=== PATIENT | female | born 1950 | race Caucasian/White ===

== ENCOUNTER → 2017-01-18 | Outpatient (CLI) | payer BC ==
[~2017-01-18] MED LIST: ANTIVERT PO; CALCIUM; CELEXA PO; CLARITIN10 MG PO; FLONASE16 GM; LEVSIN; LISINOPRIL; LISINOPRIL PO; LORTAB 7.5-5001 TAB; METHSCOPOLAMINE; MULTI-VITAMIN1 TAB; PREVACID; PREVACID PO; REGLAN; REGLAN PO
--- NOTE | ~2017-01-18 | MY29 ---
[facility] A Service of [facility] & [facility] RADIOLOGY TEXT RESULTS PATIENT: MIRA BLACK LOCATION: [facility] : 54 UNIT #: [id number] AGE: [address]: Sammy Key MD SEX: F ORDER DR: [id number] [facility]. [place], [place] [address] [id number] O MR#: [id number] Acc #: [id number] NAME: MIRA BLACK : 1950 SEX: F STUDY DATE/TIME: 01/18/2017 16:08 UNIT: [facility] ROOM: STUDY DESCRIPTION: MY ABDULAZIZ SCREENING W/ CAD BILAT Attending Physician: Sammy Key M.D. Referring Physician: Sammy Key M.D. Ordering Physician: Sammy Key M.D. Primary Care Physician: Sammy Key M.D. MEDICAL IMAGING REPORT This report is preliminary unless electronic signature is present EXAM Bilateral digital screening mammogram with CAD. COMPARISON January 09, 2016, December 31, 2014, October 17, 2013, July 02, 2012, July 10, 2011, May 06, 2010, April 11, 2010. April 10, 2009, March 21, 2008, April 18, 2007. March 24, 2007, and March 15, 2006. INDICATION Breast cancer screening. 66-year-old asymptomatic female. No personal or family history of breast cancer. FINDINGS There are scattered fibroglandular densities. There are no suspicious findings in the left breast. In the 8 o'clock middle third of the right breast, there is a suspected developing mass measuring up to 7 mm. IMPRESSION 1. No mammographic evidence of malignancy in the left breast. 2. Suspected developing right breast mass. Further evaluation with spot magnification CC and spot magnification MLO views is recommended, likely followed by right breast ultrasound. Patients over the age of 40 are entered into a reminder system with target due date for the next mammogram. A result letter will also be sent to the patient. BIRADS: 0 Incomplete; need additional imaging evaluation and/or prior mammograms for comparison. Dictated by... [facility] A Service of [facility] & [facility] RADIOLOGY TEXT RESULTS PATIENT: MIRA BLACK LOCATION: [facility] : 54 UNIT #: [id number] AGE: [address]: Sammy Key MD SEX: F ORDER DR: Ethan Perez M.D. THIS IS AN ELECTRONICALLY VERIFIED REPORT Ethan Perez M.D. at 01/21/2017 12:45 PM CORWIN/ruddy TD: 01/19/2017 02:46 JOB #: [id number] MEDICAL IMAGING REPORT Page 1 of 1 COPY
== END | disposition home or self-care (01) ==
LOC: CWCC 09:15
DX: Z12.31 Encounter for screening mammogram for malignant neoplasm of breast (principal); N63 Unspecified lump in breast
CPT/HCPCS: G0202

== ENCOUNTER → 2017-01-29 | Outpatient (CLI) | payer BC ==
--- NOTE | ~2017-01-29 | US24 ---
[facility] A Service [facility] RADIOLOGY TEXT RESULTS PATIENT: MIRA BLACK LOCATION: [facility] : 54 UNIT #: [id number] AGE: [address]: Sammy Key MD SEX: F ORDER DR: [id number] [facility]. [place], [place] [address] [id number] O MR#: [id number] Acc #: [id number] NAME: MIRA BLACK : 1950 SEX: F STUDY DATE/TIME: 01/29/2017 8:41 UNIT: [facility] ROOM: STUDY DESCRIPTION: US Breast Unilateral Attending Physician: Sammy Key M.D. Referring Physician: Sammy Key M.D. Ordering Physician: Sammy Key M.D. Primary Care Physician: Sammy Key M.D. MEDICAL IMAGING REPORT This report is preliminary unless electronic signature is present EXAMINATION Diagnostic right breast ultrasound. DATE 01/29/2017 HISTORY Nodular density in the 7 o'clock right breast on screening mammogram for which additional diagnostic imaging was recommended. COMPARISON Bilateral screening mammogram, 01/18/2017, 01/09/2016, 10/17/2013. Right breast digital diagnostic mammogram, 01/29/2017. FINDINGS Targeted sonographic images were performed of the upper outer right breast. Please refer to the diagnostic mammogram report from the same date for full description mammographic and sonographic findings and recommendations. IMPRESSION Right breast BIRADS category 2. Benign findings. Please refer to the diagnostic mammogram report from the same date for full description of mammographic and sonographic findings and recommendations. Dictated by... Myriam Hill M.D. THIS IS AN ELECTRONICALLY VERIFIED REPORT Myriam Hill M.D. at 01/30/2017 1:10 PM ZACARIAS/ejnsen TD: 01/29/2017 12:26 [facility] A Service [facility] RADIOLOGY TEXT RESULTS PATIENT: MIRA BLACK LOCATION: [facility] #: [id number] : 54 UNIT #: [id number] AGE: [address]: Sammy Key MD SEX: F ORDER DR: JOB #: [id number] MEDICAL IMAGING REPORT Page 1 of 1 COPY
--- NOTE | ~2017-01-29 | MY25 ---
[facility] A Service of [facility] & [facility] RADIOLOGY TEXT RESULTS PATIENT: MIRA BLACK LOCATION: [facility] : 54 UNIT #: [id number] AGE: [address]: Sammy Key MD SEX: F ORDER DR: [id number] [facility] [address] [facility]. [place], [place] [address] [id number] O MR#: [id number] Acc #: [id number] NAME: MIRA BLACK : 1950 SEX: F STUDY DATE/TIME: 01/29/2017 8:11 UNIT: [facility] ROOM: STUDY DESCRIPTION: ERICH ABDULAZIZ MARIA DEL CARMENLeonel W/ CAD UNI RT Attending Physician: Sammy Key M.D. Referring Physician: Sammy Key M.D. Ordering Physician: Sammy Key M.D. Primary Care Physician: Sammy Key M.D. MEDICAL IMAGING REPORT This report is preliminary unless electronic signature is present EXAM Right breast digital diagnostic mammogram with CAD DATE 01/29/2017 HISTORY New nodular density within the 7 o'clock right breast on previous screening mammogram for which additional diagnostic imaging was recommended. COMPARISON Bilateral screening mammogram 01/18/2017, 01/09/2016, 10/17/2013. FINDINGS True ML views were obtained of the right breast utilizing digital technique and reviewed with an FDA-approved CAD device. Additional spot compression images were obtained of the upper outer right breast in both the CC and MLO planes. Approximately a 6 mm macrolobulated isodense nodule within the central third of the right breast near the 7 o'clock axis persists and becomes more conspicuous upon spot compression. No associated architectural distortion or microcalcification are seen. Targeted diagnostic right breast ultrasound was performed on this same date. At the 7 o'clock position of the right breast, 7 cm from the nipple, a benign cluster of microcysts is seen measuring 5 x 6 x 5 mm. It corresponds to the mammographic finding. No suspicious solid nodules are seen. No architectural distortion or microcalcification. IMPRESSION Right breast BIRADS category 2. Benign findings. The nodular density STS. [facility] A Service of [facility] & [facility] RADIOLOGY TEXT RESULTS PATIENT: MIRA BLACK LOCATION: [facility] : 54 UNIT #: [id number] AGE: [address]: Sammy Key MD SEX: F ORDER DR: questioned in the 7 o'clock right breast on recent screening mammogram corresponds to a benign cluster of microcysts. No features suspicious for malignancy. Routine bilateral screening mammogram recommended in 1 year. Findings and recommendations were discussed with the patient today in the radiology department. Patients over the age of 40 are entered into a reminder system with target due date for the next mammogram. A result letter will also be sent to the patient. BIRADS: 2 Benign Finding Dictated by... Myriam Hill M.D. THIS IS AN ELECTRONICALLY VERIFIED REPORT Myriam Hill M.D. at 01/30/2017 1:10 PM ZACARIAS/marcus TD: 01/29/2017 12:33 JOB #: [id number] MEDICAL IMAGING REPORT Page 1 of 1 COPY
== END | disposition home or self-care (01) ==
LOC: CMAM 07:39
DX: R92.8 Other abnormal and inconclusive findings on diagnostic imaging of breast (principal); N63 Unspecified lump in breast
CPT/HCPCS: 76641; G0206